=== PATIENT | male | born 1960 | race Caucasian/White ===

== ENCOUNTER 2023-05-09 15:46 | Outpatient (CLI) | payer OTHER | END 2023-05-09 15:47 | disposition home or self-care (01) | LOC: CSHRAD 15:46 | PROVIDERS: ATTEND Pain Medicine Interventional Pain Medicine | DX: M25.511 Pain in right shoulder (principal); M19.011 Primary osteoarthritis, right shoulder; M25.811 Other specified joint disorders, right shoulder ==